=== PATIENT | female | born 1960 | race African-American/Black ===

== ENCOUNTER 2017-01-27 13:26 | Emergency (ER) | payer OTHER ==
[~2017-01-27] VITALS: Ht 154.9 cm; Wt 86.3 kg
[~2017-01-27 13:26] MED LIST: BENADRYL50 MG PO; CLONAZEPAM2 MG PO; ENALAPRIL MALEAT5 MG PO; FAMOTIDINE40 MG PO; FANAPT8 MG PO; MELOXICAM15 MG PO; NEXIUM40 MG PO; RISPERDAL2 MG PO; ULTRAM50 MG PO
[2017-01-27] MEDS ORDERED: GEODON80 MG PO (13:47)
[2017-01-27 14:10] LABS: MCH 27.9 PG (29.0-34.0); MCHC 32.6 G/DL (30.0-36.0); MCV 85.7 FL (83-99); MEAN PLAT.VOLUME 9.2 uM^3 (9.5-12.4); PLATELET COUNT 283 K/uL (156-360); RBC DIS.WIDTH-CV 12.1 % (11.8-14.6); RBC DIS.WIDTH-SD 38.2 % (39-53); RED BLOOD COUNT 4.55 M/uL (3.80-5.20); WHITE BLOOD COUNT 4.6 K/uL (4.1-10.2)
[2017-01-27 14:22] LABS: CHLORIDE 100 mEq/L (99-109)
[2017-01-27 14:23] LABS: SODIUM 139 mEq/L (136-147)
[2017-01-27 14:25] LABS: GLUCOSE 96 mg/dL (70-99)
[2017-01-27 14:26] LABS: ANION GAP 13 MEQ/L (2-14)
[2017-01-27 14:27] LABS: TOTAL BILIRUBIN 0.6 mg/dL (0.0-1.0)
[2017-01-27 14:28] LABS: ALKALINE PHOSPHATASE 70 IU/L (3-129); GFR ESTIMATE (CALCULATED) > 59 mL/min/
[2017-01-27 14:30] LABS: UREA NITROGEN (BUN) 13 mg/dL (9-23)
[2017-01-27 14:32] LABS: LIPASE 14 U/L (1.0-51.0)
[2017-01-27 14:42] LABS: ADD MIUA? YES; BILIRUBIN NEGATIVE; BLOOD NEGATIVE; COLOR YELLOW ((YELLOW)); GLUCOSE (STRIP) NEGATIVE; KETONES NEGATIVE; LEUKOCYTES LARGE; NITRITE NEGATIVE; PROTEIN (STRIP) NEGATIVE; SPECIFIC GRAVITY 1.009 (1.000-1.030); UROBILINOGEN 0.2 MG/DL (0.2-1.0)
[2017-01-27 14:49] LABS: BACTERIA 3+ /HPF; EPITHELIAL CELLS 3+ /HPF; MUCUS 2+ /LPF; RED BLOOD CELLS 0-5 /HPF (0-5); WHITE BLOOD CELLS TNTC /HPF (0-5); WHITE BLOOD CELLS CLUMP FEW /HPF (0-5)
[2017-01-27] MEDS ORDERED: KEFLEX500 MG PO (14:59)
[2017-01-27 15:13] VITALS: BP 150/99
== END 2017-01-27 15:14 | disposition home or self-care (01) ==
LOC: EXP 13:26 → EME 13:26 → EXP 15:14
PROVIDERS: Nurse Practitioner Family
DX: N39.0 Urinary tract infection, site not specified (principal); K21.9 Gastro-esophageal reflux disease without esophagitis; I10 Essential (primary) hypertension
CPT/HCPCS: 80053; 81003; 83690; 85027; 93005; 99281; 99284